=== PATIENT | female | born 1960 | race Native Hawaiian/Other Pacific Islander ===

== ENCOUNTER → 2016-03-05 | Day surgery (SDC) | payer MEDICARE ==
[~2016-03-05] MED LIST: AMPICILLIN INJ 1,000 MG VIAL ONE; AMPICILLIN-SULBACTAM INJ 3 GM VIAL ONE; BUPIVACAINE/EPINEPHRINE 0.5% PF 10 ML VIAL ONE; BUPR100T4 PO; CINN500C PO; DIGO0.12 PO; DILT30TA PO; FENO145T2 PO; HEPARIN SODIUM - IV 10,000 UNITS/10 ML VIAL ONE; HYDR-4107 PO; HYDR200T3 PO; LEVO25TA4 PO; METF1000 PO; MIDAZOLAM HCL 2 MG/2 ML VIAL ONE; MONT10TA4 PO; PROPOFOL 500 MG/50 ML BTL IV ONE; SODIUM CHLOR 0.9% 250 ML INJ 250 ML IV ONE; SODIUM CHLORIDE 0.9% 20 ML VIAL ONE; VENTAER INH; VITA60003; XANA1TAB2 PO; oxyCODONE/ACETAMINOPHEN 5 MG/325 MG TAB ONE
--- NOTE | 2016-03-05 10:21 | TN ---
cc: SHELLI LYONS DATE OF SURGERY: 03/05/2016 PREOPERATIVE DIAGNOSIS Right breast cancer. POSTOPERATIVE DIAGNOSIS Right breast cancer. PROCEDURE PERFORMED Left subclavian [id number] placement. SURGEON Shelli Lyons ANESTHESIA TIVA. INDICATION The patient is a 55-year-old female with stage II right breast cancer. She will require adjuvant chemotherapy and now presents for definitive port placement to facilitate access for treatment. FINDINGS At the time of surgery normal left subclavian anatomy was noted. PROCEDURE After informed consent was obtained and site verification was performed, the patient was brought to the major operating room where she received a dose of IV ampicillin. She had been taking oral ampicillin the day prior to surgery because of a prosthetic heart valve. Sequential compression hose were placed and she was given IV sedation. She was placed in the Trendelenburg position and the left and right chest and neck were prepped and draped in sterile fashion. The left subclavian vein area was anesthetized with 0.5% Marcaine plain. The left subclavian vein was then accessed via percutaneous cannulation and a J-wire advanced easily into the central circulation where its position was confirmed with fluoroscopy. The needle was removed and further local analgesia was then infiltrated around the wire and both sharp and electrocautery dissection were used to create a subcutaneous pocket for the PowerPort reservoir. The catheter was measured out at 25 cm and cut off after being flushed with heparinized saline. A peel-away sheath and introducer were easily advanced over the wire and the introducer and wire were then removed. The catheter advanced easily through the peel-away sheath which was then removed. Good catheter position was noted at 18 cm and the catheter was cut off at that point and secured to the reservoir which was noted to flush and aspirate easily. The reservoir was secured to the chest wall with a single 2-0 Prolene suture and good hemostasis was noted. The wound was closed using interrupted 3-0 Vicryl subcutaneous sutures and a 4-0 Monocryl subcuticular suture. Steri-Strips and a sterile dressing were applied. A chest x-ray is pending at the time of this dictation. The patient tolerated the procedure well and was brought to the recovery room in good condition. All sponge and needle counts were correct at the conclusion of the case. MD CARLIN Cameron/CHELSEA /9:55 AM /10:17 AM
== END | disposition home or self-care (01) ==
LOC: ESDC 07:14
PROVIDERS: ATTEND Surgery
DX: C50.911 Malignant neoplasm of unspecified site of right female breast (principal)
CPT/HCPCS: 77001; C1788; J0290; J0295; J1644; J2250; J3010; J7050

== ENCOUNTER 2016-03-19 14:16 | Emergency (ER) | payer MEDICARE ==
[~2016-03-19] VITALS: Ht 160 cm; Wt 80.0 kg
[~2016-03-19 14:16] MED LIST changes: -AMPICILLIN INJ 1,000 MG VIAL ONE; -AMPICILLIN-SULBACTAM INJ 3 GM VIAL ONE; -BUPIVACAINE/EPINEPHRINE 0.5% PF 10 ML VIAL ONE; -HEPARIN SODIUM - IV 10,000 UNITS/10 ML VIAL ONE; -MIDAZOLAM HCL 2 MG/2 ML VIAL ONE; -PROPOFOL 500 MG/50 ML BTL IV ONE; -SODIUM CHLOR 0.9% 250 ML INJ 250 ML IV ONE; -SODIUM CHLORIDE 0.9% 20 ML VIAL ONE; -oxyCODONE/ACETAMINOPHEN 5 MG/325 MG TAB ONE
[2016-03-19 14:18] VITALS: BP 110/62; PULSE 118; PULSE 18; RESP 18; RESP 33; TEMP 100.2; O2SAT 98
[2016-03-19 15:10] VITALS: RESP 18; O2SAT 98
--- NOTE | 2016-03-19 15:14 | PD ---
HPI Chief Complaint: Fever Time Seen by Provider: 14:50 Travel History International Travel<30 days: No Contact w/Intl Traveler<30days: No Traveled to known affect area: No History of Present Illness HPI This patient complains of fever. She had a temp of 101.6 orally. She is receiving chemotherapy for breast cancer. She has had mastectomy. She has a chronic dry cough which is basically unchanged from usual. She has quit smoking. No vomiting or diarrhea. Symptoms severity is moderate. No alleviating factors. Duration 3 days. PFSH Past Medical History Asthma: Yes Anxiety: Yes Depression: Yes Cancer: Yes Cardiovascular Problems: Yes (mitral valve prolapse ) High Cholesterol: Yes Chemotherapy: Yes Chest Pain: Yes Congestive Heart Failure: Yes COPD: Yes Diabetes: Yes Patient Takes Glucophage: Yes Diminished Hearing: No Gastrointestinal Disorders: Yes (NO PROBLEM RECENTLY) Genitourinary: No Hepatitis: No Hiatal Hernia: No Hypertension: Yes Implanted Vascular Access Dvce: Yes Medical other: Yes (HX OF GERD, EXCESSIVE BLEEDING AFTER REMOVAL OF G TUBE, J TUBE) Musculoskeletal: No Neurologic: No Psychiatric: No Reproductive: No Respiratory: Yes (COPD, ASTHMA,SINUSITIS,RHINITIS,BRONCHITIS) Immunizations Current: Yes Thyroid Disease: Yes Tetanus Vaccination: > 5 Years ?: Not : 4 Para: 2 Miscarriage: 1 : 1 Past Surgical History AICD: No Body Medical Devices: Tracheostomy Cardiac Surgery: Yes (HEART VALVE REPL;REPAIRED PULMONARY VALVE) Ear Surgery: No Endocrine Surgery: No Eye Surgery: No Genitourinary Surgery: No Gynecologic Surgery: No Joint Replacement: No Oral Surgery: No Pacemaker: No Thoracic Surgery: Yes (NON MALIGNANT BREAST TUMOR REMOVED; BREAST BX 12/23; RIGHT MASTECTOMY ) Other Surgery: Yes Social History Alcohol Use: Yes (OCASSIONALLY) Tobacco Use: No Substance Use: No Allergies-Medications (Allergen,Severity, Reaction): Coded Allergies: Percocet (Verified Allergy, Intermediate, ITCHING, 03/19/16) Bystolic (Verified Adverse Reaction, Severe, PAIN/NUMBNESS FEET & HANDS, ) *MDRO Multi-Drug Resistant Organism (Verified Adverse Reaction, Unknown, ) MRSA (sputum-06/10/11) Reported Meds & Prescriptions Reported Meds & Active Scripts Active Reported Hydrocodone-Acetaminophen 5-300 Mg Tab 1 Tab PO Q6H PRN Cinnamon 500 Mg Cap 500 Mg PO DAILY Ventolin Hfa 18 GM Inh (Albuterol Sulfate) 90 Mcg/Act Aer 2 Puff INH Q6H PRN Xanax (Alprazolam) 1 Mg Tab 1 Mg PO HS PRN Levothyroxine (Levothyroxine Sodium) 25 Mcg Tab 25 Mcg PO DAILY Digoxin 0.125 Mg Tab 0.125 Mg PO DAILY Hydroxychloroquine (Hydroxychloroquine Sulfate) 200 Mg Tab 200 Mg PO DAILY Takw with food Fenofibrate 145 Mg Tab 145 Mg PO DAILY Bupropion HCl 100 Mg Tab 150 Mg PO HS Metformin (Metformin HCl) 1,000 Mg Tab 1,000 Mg PO HS With a meal Diltiazem (Diltiazem HCl) 30 Mg Tab 30 Mg PO BID Montelukast (Montelukast Sodium) 10 Mg Tab 10 Mg PO HS Review of Systems General / Constitutional: Positive: Fever, Chills Eyes: No: Visual changes HENT: Positive: Congestion, No: Headaches Cardiovascular: No: Chest Pain or Discomfort Respiratory: Positive: Cough, No: Shortness of Breath Gastrointestinal: Positive: Nausea, No: Abdominal Pain Genitourinary: No: Dysuria Musculoskeletal: No: Pain Skin: No Rash Neurologic: No: Weakness Psychiatric: No: Depression Endocrine: No: Polydipsia Hematologic/Lymphatic: No: Easy Bruising Physical Exam Narrative GENERAL: Well-nourished, well-developed patient in no apparent distress. SKIN: Warm and dry. HEAD: Atraumatic. Normocephalic. EYES: Pupils equal and round. No scleral icterus. No injection or drainage. ENT: No nasal bleeding or discharge. Mucous membranes pink and moist. Throat clear NECK: Trachea midline. No JVD. No meningeal signs CARDIOVASCULAR: Regular rate and rhythm. No murmur appreciated. RESPIRATORY: No accessory muscle use. Clear to auscultation. Breath sounds equal bilaterally. GASTROINTESTINAL: Abdomen soft, non-tender, nondistended. Hepatic and splenic margins not palpable. MUSCULOSKELETAL: No obvious deformities. No clubbing. No cyanosis. No edema. NEUROLOGICAL: Awake and alert. No obvious cranial nerve deficits. Motor grossly within normal limits. Normal speech. PSYCHIATRIC: Appropriate mood and affect; insight and judgment normal. Data Data Last Documented VS Vital Signs Date Time Temp Pulse Resp B/P Pulse Ox O2 Delivery O2 Flow Rate FiO2 03/19/16 16:26 17 03/19/16 15:10 98 Room Air 03/19/16 14:18 100.2 118 110/62 Orders Complete Blood Count With Diff (03/19/16 15:04) Comprehensive Metabolic Panel (03/19/16 15:04) Lactic Acid Sepsis Protocol (03/19/16 15:04) Urinalysis - C+S If Indicated (03/19/16 15:04) Blood Culture (03/19/16 15:04) Chest, Single Ap (03/19/16 15:04) Ecg Monitoring (03/19/16 15:04) Iv Access Insert/Monitor (03/19/16 15:04) Oximetry (03/19/16 15:04) Ibuprofen (Motrin) (03/19/16 15:15) Ceftazidime Inj (Fortaz Inj) (03/19/16 15:15) Labs Laboratory Tests Test 03/19/16 15:20 White Blood Count 25.8 TH/MM3 Red Blood Count 4.33 MIL/MM3 Hemoglobin 9.5 GM/DL Hematocrit 30.2 % Mean Corpuscular Volume 69.8 FL Mean Corpuscular Hemoglobin 22.0 PG Mean Corpuscular Hemoglobin 31.5 % Concent Red Cell Distribution Width 14.8 % Platelet Count 118 TH/MM3 Mean Platelet Volume 10.2 FL Neutrophils (%) (Auto) 83.0 % Lymphocytes (%) (Auto) 6.5 % Monocytes (%) (Auto) 10.3 % Eosinophils (%) (Auto) 0.0 % Basophils (%) (Auto) 0.2 % Neutrophils # (Auto) 21.4 TH/MM3 Lymphocytes # (Auto) 1.7 TH/MM3 Monocytes # (Auto) 2.7 TH/MM3 Eosinophils # (Auto) 0.0 TH/MM3 Basophils # (Auto) 0.1 TH/MM3 CBC Comment AUTO DIFF Urine Color YELLOW Urine Turbidity CLEAR Urine pH 7.5 Urine Specific [place] 1.014 Urine Protein TRACE mg/dL Urine Glucose (UA) NEG mg/dL Urine Ketones NEG mg/dL Urine Occult Blood NEG Urine Nitrite NEG Urine Bilirubin NEG Urine Urobilinogen LESS THAN 2.0 MG/DL Urine Leukocyte Esterase NEG Urine WBC 1 /hpf Urine Squamous Epithelial 1 /hpf Cells Microscopic Urinalysis Comment CATH-CULT NOT IND Sodium Level 139 MEQ/L Potassium Level 3.8 MEQ/L Chloride Level 106 MEQ/L Carbon Dioxide Level 23.7 MEQ/L Anion Gap 9 MEQ/L Blood Urea Nitrogen 7 MG/DL Creatinine 0.86 MG/DL Estimat Glomerular Filtration 69 ML/MIN Rate Random Glucose 129 MG/DL Lactic Acid Level 0.8 mmol/L Calcium Level 8.8 MG/DL Total Bilirubin 0.5 MG/DL Aspartate Amino Transf 16 U/L (AST/SGOT) Alanine Aminotransferase 21 U/L (ALT/SGPT) Alkaline Phosphatase 111 U/L Total Protein 8.0 GM/DL Albumin 3.9 GM/DL MDM Medical Decision Making Medical Screen Exam Complete: Yes Emergency Medical Condition: Yes Medical Record Reviewed: Yes Differential Diagnosis bronchitis, pneumonia, flu syndrome, neutropenia Narrative Course I have reviewed the patient's electronic medical record. Blood culture 2 obtained I then gave him 2 g IV Fortaz CBC shows leukocytosis of 25,000 consistent with her recent Neulasta injection Medical profile is normal LFTs are normal Urinalysis is clean 600 mg Motrin given I reviewed her chest x-ray which shows chronic nodular pattern unchanged from prior Case reviewed in detail with her electrician deck This seems most likely to be viral and she recommends discharge home and she will follow her up next week Diagnosis Primary Impression: Flu syndrome Additional Impression: Chemotherapy adverse reaction Qualified Code: T45.1X5A - Chemotherapy adverse reaction, initial encounter Med/Other Pt SpecificInfo: Other Disposition: DISCHARGE HOME Condition: Stable Jelani Rdz MD Mar 19, 2016 15:14
[2016-03-19] MEDS ORDERED: cefTAZidime INJ 2,000 MG in SODIUM CHLORIDE 0.9% INJ 100 ML IV ONE (15:15)
[2016-03-19] MEDS ORDERED: IBUPROFEN 600 MG TAB PO ONE (15:15)
[2016-03-19 15:56] LABS: AUTOMATED NEUTROPHIL # 21.4 TH/MM3 (1.8-7.7); BASOPHIL # 0.1 TH/MM3 (0-0.2); BASOPHIL % 0.2 % (0.0-2.0); HEMATOCRIT 30.2 % (35.0-46.0); LYMPH % 6.5 % (9.0-44.0); LYMPHOCYTE # 1.7 TH/MM3 (1.0-4.8); MEAN CELL VOLUME 69.8 FL (80.0-100.0); MEAN CORPUSCULAR HGB CONC 31.5 % (32.0-36.0); MONO % 10.3 % (0.0-8.0); PLATELET COUNT 118 TH/MM3 (150-450); RED BLOOD COUNT 4.33 MIL/MM3 (4.00-5.30); RED CELL DISTRIBUTION WIDTH 14.8 % (11.6-17.2); WHITE BLOOD COUNT 25.8 TH/MM3 (4.0-11.0)
[2016-03-19 16:00] LABS: HEMO FLAGS AUTO DIFF
[2016-03-19 16:03] LABS: BLOOD, URINE NEG (NEG); GLUCOSE,URINE NEG (NEG); KETONE, URINE NEG (NEG); NITRITE,URINE NEG (NEG); PH, URINE 7.5 (5.0-8.5); SQUAMOUS EPITHELIAL CELL URINE 1 /hpf (0-5); URINE COLOR YELLOW (YELLW/STRAW)
[2016-03-19 16:06] LABS: COMMENT (UR) CATH-CULT NOT IND; CULTURE IF INDICATED CATH CULTURE NOT IND
[2016-03-19 16:10] LABS: ALT (GPT) 21 U/L (10-53); ANION GAP 9 MEQ/L (5-15); AST (GOT) 16 U/L (15-37); BICARBONATE 23.7 MEQ/L (21.0-32.0); BLOOD UREA NITROGEN 7 MG/DL (7-18); CHLORIDE 106 MEQ/L (98-107); GLOMERULAR FILTRATION RATE 69 ML/MIN (>89); POTASSIUM 3.8 MEQ/L (3.5-5.1); SODIUM (NA) 139 MEQ/L (136-145)
[2016-03-19 16:12] LABS: ALKALINE PHOSPHATASE 111 U/L (45-117); TOTAL BILIRUBIN ADULT 0.5 MG/DL (0.2-1.0)
--- NOTE | 2016-03-19 16:15 | RADRPT ---
EXAM DATE/TIME: 03/19/2016 15:20 [facility] COMPARISON: CHEST SINGLE AP, January 25, 2012, 8:16. INDICATIONS : Fever starting today MEDICAL HISTORY : None. SURGICAL HISTORY : CABG. Mitral valve replacement ENCOUNTER: Initial ACUITY: 1 day PAIN SCORE: 0/10 LOCATION: Bilateral chest FINDINGS: Median sternotomy wires are noted status post cardiac surgery. Cardiac valve replacements are noted. A left subclavian [id number] has its tip in the superior vena cava. Scattered reticular nodular densities are noted bilaterally and are stable. CONCLUSION: Scattered reticular nodular densities bilaterally which are stable. Kyler Sanchez MD on March 19, 2016 at 16:11 Board Certified Radiologist. This report was verified electronically.
[2016-03-19 16:26] VITALS: RESP 17
[2016-03-19 16:51] LABS: BANDS 13 % (0-6); CORRECTED NUCLEATED RBC 1 /100 WBC (0-0); METAMYELOCYTES 4 % (0-1); MYELOCYTES 2 % (0-0); NEUTROPHIL # MANUAL DIFF 23.2 TH/MM3 (1.8-7.7); POLYS (SEG NEUTROPHILS) 71 % (16-70); WBC DIFF SAMPLE 100
[2016-03-19 16:53] LABS: PLATELET ESTIMATE SMEAR LOW (NORMAL); PLATELET MORPHOLOGY NORMAL (NORMAL); SCAN/DIFF FINAL DIFF MANUAL; TOXIC GRANULATION 1+ (NORMAL); TOXIC VACUOLATION PRESENT (NONE SEEN)
[2016-03-19 17:00] VITALS: BP 120/76; TEMP 98.8
== END 2016-03-19 17:00 | disposition home or self-care (01) ==
LOC: NEPB 14:16
DX: J11.1 Influenza due to unidentified influenza virus with other respiratory manifestations (principal); T45.1X5A Adverse effect of antineoplastic and immunosuppressive drugs, initial encounter; C50.919 Malignant neoplasm of unspecified site of unspecified female breast; J45.909 Unspecified asthma, uncomplicated; E78.00 Pure hypercholesterolemia, unspecified; E11.9 Type 2 diabetes mellitus without complications; I10 Essential (primary) hypertension
CPT/HCPCS: 71010; 80053; 81001; 83605; 85007; 85027; 87040; 96365; 99284; J0713; J1642